=== PATIENT | male | born 1975 | race Caucasian/White ===

== ENCOUNTER 2024-07-26 02:34 | Observation (INO) ==
[2024-07-26 03:07] LABS: GASTROCCULT POSITIVE (Negative)
[2024-07-26 03:12] LABS: BASOPHILS % (AUTO) 0.6 %; EOSINOPHILS % (AUTO) 1.1 %; HCT - HEMATOCRIT 33.3 % (42.0-52.0); HGB - HEMOGLOBIN 11.5 g/dL (14.0-18.0); LYMPHOCYTES % (AUTO) 53.1 %; MEAN CORPUSCULAR HEMOGLOBIN 30.1 pg (27.0-31.0); MEAN CORPUSCULAR HGB CONC 34.5 g/dL (32.0-36.0); MEAN CORPUSCULAR VOLUME 87.2 fL (80.0-94.0); MEAN PLATELET VOLUME 11.1 fL (7.4-11.4); MONOCYTES % (AUTO) 6.1 %; NEUTROPHILS % (AUTO) 38.9 %; PLT - PLATELET COUNT 190 10^3/uL (130-450); RED BLOOD COUNT 3.82 10^6/uL (4.70-6.10); WHITE BLOOD COUNT 12.4 x10^3/uL (4.8-10.8)
[2024-07-26] MEDS: PANTOPRAZOLE 40 MG VIAL IVP STA (03:14)
[2024-07-26 03:15] LABS: BAND NEUTROPHILS % (MANUAL) 0 %
[2024-07-26 03:21] LABS: ALBUMIN 3.5 g/dL (3.2-5.5); ALBUMIN/GLOBULIN RATIO 1.8 (1.0-2.2); BILIRUBIN,TOTAL 0.7 mg/dL (0.2-1.0); CALCIUM 8.2 mg/dL (8.5-10.3); CREATININE 0.8 mg/dL (0.6-1.3); POTASSIUM 3.7 mmol/L (3.5-4.5); TOTAL PROTEIN 5.5 g/dL (6.4-8.9)
[2024-07-26 03:22] LABS: INR 1.2 (0.8-1.2); PT - PROTHROMBIN TIME 13.6 secs (9.9-12.6)
[2024-07-26 03:27] LABS: TROPONIN I HIGH SENSITIVITY 4.9 ng/L (2.3-19.7)
--- NOTE | 2024-07-26 04:19 | ED Physician Documentation ---
PD HPI GI BLEED Stated complaint Stated Complaint: GI/ SYNCOPE Chief complaint Chief Complaint: Neuro Additional information Additional information: HPI from patient. Patient had maroon-colored stool yesterday. Was otherwise feeling well until earlier tonight when [place] was on [place] come to [facility] and had near- syncopal episode when he was standing to use the urinal. The symptoms (lightheadedness, sensation that he might pass out) resolved rapidly once he sat back down. 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 Upon standing up he had unwitnessed syncopal episode. Unknown length of LOC. He denies having any pain including chest pain, abdominal pain. He denies h/o GIB. He does not drink alcohol on a heavy nor regular basis. Of note, patient has been taking aleve BID x 6 weeks; he says he was instructed to do so by his urologist after having reversal of his vasectomy. Denies nausea, vomiting (episode of emesis immediately after triage; see narrative under physical exam below) Past surgical history includes gastric sleeve (placed approximately 6 months ago). Patient required my immediate attention due to syncopal event during ED regulatory scientist. Meds/Allgy Home Medications Ambulatory Orders Medication Instructions Recorded Confirmed No Known Home Medications 07/26/24 07/26/24 Allergies Allergies Allergy/AdvReac Type Severity Reaction Status Date / Time No Known Drug Allergies Allergy Verified 07/26/24 02:49 PFSH Active Problems All Active Problems (Updated 07/26/24 @ 04:20 by Victor M Moyer MD) Syncope (Acute) Acute upper GI bleed (Acute) Social History Social History Smoking Status: Never smoker Relationship: Do you feel safe in your home environment?: Yes Suffered physical, verbal, emotional, or financial abuse?: No Exam Exam Vital Signs: Vital Signs x48h Pulse Resp BP Pulse Ox 07/26/24 06:08 67 16 109/71 97 07/26/24 05:08 67 20 120/70 97 07/26/24 04:38 71 16 123/73 98 07/26/24 03:23 74 20 121/79 97 07/26/24 03:18 70 20 121/79 97 07/26/24 02:51 74 20 121/80 99 I was summoned to the ED triage area by the triaging RN due to patient having a syncopal event during the triage process. The patient is seated in a chair, pale and unresponsive. However, within approximately 5-10 seconds, the patient suddenly regained consciousness and had brief resolution of his pallor. After approximately 30-45 seconds, he again became pale and although he did not lose consciousness again, he was slower to respond (both verbally as well as with following commands). He was then transferred to a stretcher and brought to room 3. Patient was AAOx3 and responding quickly and appropriately shortly after lying down on the stretcher. He had one episode of blood-tinged vomitus while being wheeled into room 3. The physical exam below is subsequent to being brought in to room 3 Constitutional normal general appearance, no apparent distress and alert HENMT oral mucous membranes normal Eyes PERRL and EOMs intact bilaterally Respiratory breath sounds equal bilaterally and clear to auscultation bilaterally Cardiovascular normal heart rate noted, regular rhythm noted, no gallop, no rub, no murmur, no JVD and no edema Gastrointestinal abdomen soft to palpation, nontender to palpation, nondistended, normoactive bowel sounds, no masses, no pulsatile mass and rectal exam abnormal (heme positive stool) Neurology brake assembler II-XII intact, no movement abnormality noted, no focal motor deficit noted, no sensory deficits noted, speech normal and GCS 15 Psychiatry oriented x3, thought process normal, cooperative, affect normal and memory normal Skin skin color abnormal (pale) (mild pallor) Results Vitals Vitals: Vital Signs - 24 hr 07/26/24 02:38 07/26/24 02:51 07/26/24 03:18 Pulse Rate 74 70 Respiratory Rate 20 20 Blood Pressure 121/80 121/79 O2 Saturation 99 97 O2 Source Room air Room air Pain Intensity 0 07/26/24 03:23 07/26/24 04:38 07/26/24 05:08 Pulse Rate 74 71 67 Respiratory Rate 20 16 20 Blood Pressure 121/79 123/73 120/70 O2 Saturation 97 98 97 O2 Source Room air Room air Room air Pain Intensity 07/26/24 06:08 Pulse Rate 67 Respiratory Rate 16 Blood Pressure 109/71 O2 Saturation 97 O2 Source Room air Pain Intensity Oxygen O2 Source Room air EKG (time done) 02:54: EKG releavant findings:: EKG personally interpreted by author of this note. Relevant findings are: Rate: Rate (enter#) (78) Rhythm: NSR and Normal P waves [place]: Normal Intervals: Normal VA QRS: QRS normal Ischemia: Normal ST segments and Q waves (III, aVF) Other comments: Other comments (RSR' V1) Labs Labs: Laboratory Tests 07/26/24 07/26/24 07/26/24 02:52 03:02 03:30 WBC 12.4 H RBC 3.82 L Hgb 11.5 L Hct 33.3 L MCV 87.2 MCH 30.1 MCHC 34.5 RDW 13.0 Plt Count 190 MPV 11.1 Neut # (Auto) Not Reportable Lymph # (Auto) Not Reportable [place] # (Auto) Not Reportable Eos # (Auto) Not Reportable Baso # (Auto) Not Reportable Absolute Nucleated RBC Not Reportable Total Counted 100 Band Neuts % (Manual) 0 Abnorm Lymph % (Manual) 12 Nucleated RBC % Not Reportable Neutrophils # (Manual) 3.3 Lymphocytes # (Manual) 8.1 H Monocytes # (Manual) 0.6 Eosinophils # (Manual) 0.4 Basophils # (Manual) 0.0 Differential Comment MANUAL DIFFERENTIAL WBC Morphology NORMAL APPEARANCE Platelet Estimate NORMAL (130-450,000) Platelet Morphology NORMAL APPEARANCE RBC Morph Micro Appear NORMAL APPEARANCE PT 13.6 H INR 1.2 APTT 23.0 L Sodium 139 Potassium 3.7 Chloride 108 Carbon Dioxide 24 Anion Gap 7.0 BUN 45 H Creatinine 0.8 Estimated GFR (MDRD) 103 Glucose 128 H Calcium 8.2 L Total Bilirubin 0.7 AST 14 ALT 17 Alkaline Phosphatase 47 Troponin I High Sens 4.9 Total Protein 5.5 L Albumin 3.5 Globulin 2.0 L Albumin/Globulin Ratio 1.8 Lipase 12 Gastric Fluid pH 3.0 Gastric Occult Blood POSITIVE Blood Type AB POSITIVE Blood Type Recheck AB POSITIVE Antibody Screen NEGATIVE Rads (name of study) chest xray: Relevant Findings:: Prelim report reviewed and See rad report CTH: Relevant Findings:: Prelim report reviewed and See rad report PD Medical Decision Making ED course Complexity details: reviewed results, re-evaluated patient, considered differential and d/w patient ED course: UGIB with syncope TALENT ACQUISITION ASSISTANT and again during ED triage. Patient recovered from the ED syncopal event before BP could be measured (BP was being measured at the time of syncope and thus likely was too low for the autocuff to register results). Subsequent to lying on stretcher and being brought into room 3 of ED, he had no further episodes of syncope/near-syncope nor further vomiting nor stool output. He had no pain c/o throughout ED stay and vital signs were stable throughout ED stay after being brought into room 3. Hemoglobin is 11.5. No previous results in [facility] but patient shows me results from 07/05/24 that include hemoglobin of 15. Also of note is elevated BUN (45) with normal creatinine (0.8), likely result of UGIB. Gastroccult is guaiac positive as is hemocult from rectal exam (note that both cards with samples (vomitus, stool) were sent to lab; the hemocult order was entered incorrectly and thus lab result not reported, but I used the stool sample on two different hemoccult cards, sending one to the lab and applying hemoccult to the other sample in ED and result was clearly positive (blue)). I discussed this case with Dr. Lan and she says patient is appropriate for admission to [facility]; EGD can be undertaken at [facility] if needed. I then discussed this case with [facility] practitioner on duty; he requests CTH prior to admit. CTH is normal (per radiologist's reading) and thus patient admitted to [facility] hospitalist's service. Patient given 40mg IV protonix in ED. Discharge Plan Discharge Patient Disposition: [facility] DC/Xfer Condition: Stable Clinical Impression: Acute upper GI bleed, Syncope Interventions: ED Admission Assessment Last Done: 07/26/24 07:15
[2024-07-26 04:24] LABS: ABNORMAL LYMPHS % (MANUAL) 12 %; DIFFERENTIAL COMMENT MANUAL DIFFERENTIAL; EOSINOPHILS # (MANUAL) 0.4 10^3/uL (0-0.7); LYMPHOCYTES # (MANUAL) 8.1 10^3/uL (1.5-3.5); LYMPHOCYTES % (MANUAL) 53 %; MONOCYTES # (MANUAL) 0.6 10^3/uL (0.0-1.0); NEUTROPHILS # (MANUAL) 3.3 10^3/uL (1.5-6.6); PLATELET ESTIMATE, MANUAL NORMAL (130-450,000) (NORMAL); PLATELET MORPHOLOGY NORMAL APPEARANCE (NORMAL); RBC MORPHOLOGY (MULTIPLE) NORMAL APPEARANCE (NORMAL); WBC MORPHOLOGY (MULTIPLE) NORMAL APPEARANCE (NORMAL)
[2024-07-26] MEDS ORDERED: ONDANSETRON 4 MG/2 ML VIAL IVP PRN ×2 (06:31→10:37)
[2024-07-26] MEDS ORDERED: MORPHINE 10 MG/ML VIAL IVP PRN (06:31)
[2024-07-26] MEDS: LACTATED RINGERS 1,000 ML IV SCH (07:59)
--- NOTE | 2024-07-26 08:00 | XRAY Report ---
PROCEDURE: XR Chest 1V INDICATIONS: syncope TECHNIQUE: One view of the chest was acquired. COMPARISON: None. FINDINGS: Surgical changes and devices: None. Lungs and pleura: No pleural effusions or pneumothorax. No consolidation. Mediastinum: Mediastinal contours appear normal. Heart size is normal. Bones and chest wall: No suspicious bony lesions. Overlying soft tissues appear unremarkable. IMPRESSION: No acute cardiopulmonary process. Findings are concordant with preliminary interpretation provided by [facility]. Reviewed by: Jovan Merino MD on 07/26/2024 7:59 AM PDT Approved by: Jovan Merino MD on 07/26/2024 7:59 AM PDT Station ID: [id number]
--- NOTE | 2024-07-26 08:01 | CT Report ---
PROCEDURE: CT Head WO INDICATIONS: syncope TECHNIQUE: Noncontrast 4.5 mm thick angled axial sections acquired from the foramen magnum to the vertex. For r adiation dose reduction, the following was used: automated exposure control, adjustment of mA and/or kV according to patient size. COMPARISON: None. FINDINGS: Image quality: Excellent. CSF spaces: Basal cisterns are patent. No extra-axial fluid collections. Ventricles are normal in size and shape. Brain: No midline shift. No intracranial mass effect or hemorrhage. Lyles-white matter interface is normal. Skull and face: Calvarium and visualized facial bones are intact, without suspicious lesions. Sinuses: Visualized sinuses and mastoids are clear. IMPRESSION: No acute intracranial pathology. Findings are concordant with preliminary interpretation provided by [facility]. Reviewed by: Jovan Merino MD on 07/26/2024 8:00 AM PDT Approved by: Jovan Merino MD on 07/26/2024 8:00 AM PDT Station ID: [id number]
--- NOTE | 2024-07-26 09:30 | ANESTHESIA PROCEDURE NOTE ---
Pre-Anesthesia VS, & Labs Diagnosis Surgical Diagnosis:: Anemia, GI Bleed Procedure Procedure: EGD Vitals Vital Signs: Temp Pulse Resp BP Pulse Ox 36.8 C 73 16 129/81 98 07/26/24 07:25 07/26/24 07:25 07/26/24 07:25 07/26/24 07:25 07/26/24 07:25 NPO NPO: >8 hours Lab Results Current Lab Results: Laboratory Tests 07/26/24 03:30: Blood Type Recheck AB POSITIVE 07/26/24 02:52: WBC 12.4 H, RBC 3.82 L, Hgb 11.5 L, Hct 33.3 L, MCV 87.2, MCH 30.1, MCHC 34.5, RDW 13.0, Plt Count 190, MPV 11.1, Neut # (Auto) Not Reportable, Lymph # (Auto) Not Reportable, [place] # (Auto) Not Reportable, Eos # (Auto) Not Reportable, Baso # (Auto) Not Reportable, Absolute Nucleated RBC Not Reportable, Total Counted 100, Band Neuts % (Manual) 0, Abnorm Lymph % (Manual) 12, Nucleated RBC % Not Reportable, Neutrophils # (Manual) 3.3, Lymphocytes # (Manual) 8.1 H, Monocytes # (Manual) 0.6, Eosinophils # (Manual) 0.4, Basophils # (Manual) 0.0, Differential Comment MANUAL DIFFERENTIAL, WBC Morphology NORMAL APPEARANCE, Platelet Estimate NORMAL (130-450,000), Platelet Morphology NORMAL APPEARANCE, RBC Morph Micro Appear NORMAL APPEARANCE, PT 13.6 H, INR 1.2, APTT 23.0 L, Sodium 139, Potassium 3.7, Chloride 108, Carbon Dioxide 24, Anion Gap 7.0, BUN 45 H, Creatinine 0.8, Estimated GFR (MDRD) 103, Glucose 128 H, Calcium 8.2 L, Total Bilirubin 0.7, AST 14, ALT 17, Alkaline Phosphatase 47, Troponin I High Sens 4.9, Total Protein 5.5 L, Albumin 3.5, Globulin 2.0 L, Albumin/Globulin Ratio 1.8, Lipase 12, Blood Type AB POSITIVE, Antibody Screen NEGATIVE Lab results reviewed: Yes 07/26/24 02:52 07/26/24 02:52 Meds/Allgy Home Medications Ambulatory Orders Medication Instructions Recorded Confirmed No Known Home Medications 07/26/24 07/26/24 Allergies Allergies Allergy/AdvReac Type Severity Reaction Status Date / Time No Known Drug Allergies Allergy Verified 07/26/24 02:49 PFSH Active Problems All Active Problems (Updated 07/26/24 @ 04:20 by Victor M Moyer MD) Syncope (Acute) Acute upper GI bleed (Acute) Surgical History Surgical History (Updated 07/26/24 @ 09:29 by Luciana Hoover CRNA) H/O gastric sleeve Denies any anesthetic complications Social History Social History (Updated 07/26/24 @ 07:56 by Victor M Moyer MD) Smoking Status: Never smoker Relationship: Do you feel safe in your home environment?: Yes Suffered physical, verbal, emotional, or financial abuse?: No POLST Patient has POLST: No Anesthesia Exam (Expanded) Exam General: Alert, Oriented x3 and Cooperative Dental: WNL Mouth Openin Fingerbreadth Neck Mobility: Normal Mallampati classification: II Thyromental Distance: 4-6 cm Exam Exam Vital Signs: Vital Signs x48h Temp Pulse Pulse Resp BP BP Pulse Ox 07/26/24 07:25 36.8 C 73 16 129/81 98 07/26/24 06:53 71 16 115/70 95 07/26/24 06:08 67 16 109/71 97 07/26/24 05:08 67 20 120/70 97 07/26/24 04:38 71 16 123/73 98 07/26/24 03:23 74 20 121/79 97 07/26/24 03:18 70 20 121/79 97 07/26/24 02:51 74 20 121/80 99 Plan Plan Anesthesia Type: General and Total IV Consent for Procedure(s) Verified and Reviewed: Yes Code Status: Attempt Resuscitation ASA Classification ASA classification: 2-Mild systemic disease Is this case an emergency?: Yes
--- NOTE | 2024-07-26 09:37 | CONSULTATION NOTE ---
History of Present Illness History of Present Illness HPI Comment/Other: 48YoM admitted to medicine overnight with episodes of melena x2 in last 48hrs along with a few near syncopal and then syncopal events. FOBT+ in ED. Had x1 small emesis vs phlegm with blood in it since getting to ED. No history of prior GIB. No heavy etoh use or tobacco use. H/o gastric sleeve 6mo ago, took omeprazole p2wrzyk then transitioned to PRN tums which he used 3-4x/week. Has been using BID Aleve x6 wks for a vasectomy reversal procedure. Denies having any epigastric pain, feels his sleeve recovery has been smooth. He lives in [place], had gastric with Dr. Robby Campos at [facility] in [place], flew to [place] yesterday for his 6mo postop visit which is scheduled for tomorrow. Note no h/o prior colonoscopy, no FHX of colon cancer. Hgb 11.5 (3 wks ago at outside facility hgb was 15 - patient has results with him). PFSH Active Problems All Active Problems (Updated 07/26/24 @ 04:20 by Victor M Moyer MD) Syncope (Acute) Acute upper GI bleed (Acute) Surgical History Surgical History (Updated 07/26/24 @ 09:56 by Melony Gibbs DO) History of vasectomy and vasectomy reversal H/O gastric sleeve Denies any anesthetic complications Social History Social History (Updated 07/26/24 @ 07:56 by Victor M Moyer MD) Smoking Status: Never smoker Relationship: Do you feel safe in your home environment?: Yes Suffered physical, verbal, emotional, or financial abuse?: No POLST Patient has POLST: No Meds/Allgy Home Medications Ambulatory Orders Medication Instructions Recorded Confirmed No Known Home Medications 07/26/24 07/26/24 Allergies Allergies Allergy/AdvReac Type Severity Reaction Status Date / Time No Known Drug Allergies Allergy Verified 07/26/24 02:49 Results Lab Results Lab results reviewed: Yes 07/26/24 02:52 07/26/24 02:52 Other Lab Results: Lab Results x24hrs 07/26/24 07/26/24 07/26/24 Range/Units 03:30 03:02 02:52 WBC 12.4 H (4.8-10.8) x10^3/uL RBC 3.82 L (4.70-6.10) 10^6/uL Hgb 11.5 L (14.0-18.0) g/dL Hct 33.3 L (42.0-52.0) % MCV 87.2 (80.0-94.0) fL MCH 30.1 (27.0-31.0) pg MCHC 34.5 (32.0-36.0) g/dL RDW 13.0 (12.0-15.0) % Plt Count 190 (130-450) 10^3/uL MPV 11.1 (7.4-11.4) fL Neut # (Auto) Not Reportable Lymph # (Auto) Not Reportable [place] # (Auto) Not Reportable Eos # (Auto) Not Reportable Baso # (Auto) Not Reportable Absolute Nucleated RBC Not Reportable Total Counted 100 Band Neuts % (Manual) 0 (0 - 10) % Abnorm Lymph % (Manual) 12 % Nucleated RBC % Not Reportable Neutrophils # (Manual) 3.3 (1.5-6.6) 10^3/uL Lymphocytes # (Manual) 8.1 H (1.5-3.5) 10^3/uL Monocytes # (Manual) 0.6 (0.0-1.0) 10^3/uL Eosinophils # (Manual) 0.4 (0-0.7) 10^3/uL Basophils # (Manual) 0.0 (0-0.1) 10^3/uL Differential Comment MANUAL DIFFERENTIAL WBC Morphology NORMAL APPEARANCE (NORMAL) Platelet Estimate NORMAL (130-450,000) (NORMAL) Platelet Morphology NORMAL APPEARANCE (NORMAL) RBC Morph Micro Appear NORMAL APPEARANCE (NORMAL) PT 13.6 H (9.9-12.6) secs INR 1.2 (0.8-1.2) APTT 23.0 L (24.9-33.3) secs Sodium 139 (135-145) mmol/L Potassium 3.7 (3.5-4.5) mmol/L Chloride 108 (101-111) mmol/L Carbon Dioxide 24 (21-32) mmol/L Anion Gap 7.0 (6-13) BUN 45 H (6-20) mg/dL Creatinine 0.8 (0.6-1.3) mg/dL Estimated GFR (MDRD) 103 (>89) Glucose 128 H (74-104) mg/dL Calcium 8.2 L (8.5-10.3) mg/dL Total Bilirubin 0.7 (0.2-1.0) mg/dL AST 14 (10-42) IU/L ALT 17 (10-60) IU/L Alkaline Phosphatase 47 (42-121) IU/L Troponin I High Sens 4.9 (2.3-19.7) ng/L Total Protein 5.5 L (6.4-8.9) g/dL Albumin 3.5 (3.2-5.5) g/dL Globulin 2.0 L (2.1-4.2) g/dL Albumin/Globulin Ratio 1.8 (1.0-2.2) Lipase 12 (11-82) U/L Gastric Fluid pH 3.0 Gastric Occult Blood POSITIVE (Negative) Blood Type AB POSITIVE Blood Type Recheck AB POSITIVE Antibody Screen NEGATIVE Review of Systems Status of ROS: 10 or more systems reviewed and unremarkable except as noted in history and below Exam Exam Vital Signs: Vital Signs x48h Temp Pulse Pulse Resp BP BP Pulse Ox 07/26/24 07:25 36.8 C 73 16 129/81 98 07/26/24 06:53 71 16 115/70 95 07/26/24 06:08 67 16 109/71 97 07/26/24 05:08 67 20 120/70 97 07/26/24 04:38 71 16 123/73 98 07/26/24 03:23 74 20 121/79 97 07/26/24 03:18 70 20 121/79 97 07/26/24 02:51 74 20 121/80 99 Constitutional normal general appearance and no apparent distress HENMT normocephalic and head/scalp atraumatic Eyes conjunctivae normal and normal visual rodriguez by confrontation Neck/C-Spine visual inspection normal Respiratory normal respiratory effort Cardiovascular normal heart rate noted Gastrointestinal abdomen normal to inspection, abdomen soft to palpation, nontender to palpation and nondistended Extremities normal to inspection Psychiatry mental status grossly normal and oriented x3 Skin skin color normal Conclusion/Plan Problem List (1) Acute upper GI bleed: Plan: 48yoM with suspected UGIB in setting of acute NSAID use following recent gastric sleeve without being on PPI. HD stable with hgb of 11.5, down from 15 at outside facility 3 weeks ago. - admitted to IM, NPO and IV protonix started - to OR for EGD to assess sleeve for source of bleeding - if no bleed identified on EGD will plan for bowel prep and colonoscopy tomorrow, though suspect this is unlikely - further recs to follow EGD Melony Gibbs DO, FACS General Surgeon, [facility] Lab Results Lab results reviewed: Yes 07/26/24 02:52 07/26/24 02:52
[2024-07-26] MEDS ORDERED: PROPOFOL 500 MG/50 ML 500 MG/50 ML VIAL ONE (09:45)
[2024-07-26] MEDS ORDERED: LIDOCAINE-MPF 2% 5 ML VIAL ONE (09:45)
[2024-07-26] MEDS ORDERED: MIDAZOLAM 2 MG/2 ML VIAL ONE (09:45)
[2024-07-26] MEDS: PANTOPRAZOLE 40 MG VIAL IVP SCH (09:53)
[2024-07-26] MEDS ORDERED: MORPHINE 2 MG/ML CARPUJECT IVP PRN (10:37)
[2024-07-26] MEDS ORDERED: METOCLOPRAMIDE 10 MG/2 ML VIAL IVP PRN (10:37)
[2024-07-26] MEDS ORDERED: HYDROmorphone 0.5 MG/0.5 ML SYRINGE IVP PRN (10:37)
[2024-07-26] MEDS ORDERED: ATROPINE ABBOJECT 1 MG/10 ML SYRINGE IVP PRN (10:37)
[2024-07-26] MEDS ORDERED: fentaNYL 100 MCG/2 ML VIAL IVP PRN (10:37)
[2024-07-26] MEDS ORDERED: NALOXONE 0.4 MG/ML VIAL IVP PRN (10:37)
[2024-07-26] MEDS ORDERED: ePHEDrine 50 MG/ML VIAL IVP PRN (10:37)
--- NOTE | 2024-07-26 10:47 | ANESTHESIA POST OP EVALUATION ---
Anesthesia Post Eval Post Anesthesia Eval Vitals: Last Vital Signs Temp 36.3 C L 07/26/24 10:30 Pulse 74 07/26/24 10:45 Resp 19 07/26/24 10:45 BP 107/68 07/26/24 10:45 Pulse Ox 98 07/26/24 10:45 CV Function Including HR & BP: Stable Pain Control: Satisfactory Nausea & Vomiting: Negative Mental Status: Baseline Respiratory Status: Airway Patent Hydration Status: Satisfactory Anesthesia Complications: None
[2024-07-26] MEDS ORDERED: LACTATED RINGERS 1,000 ML IV SCH (11:00)
--- NOTE | 2024-07-26 11:57 | PHARMACY PROGRESS NOTE ---
Best Possible Medication History Admit Date and Time: 07/26/24 0629 Home Medications Medication Instructions Recorded Confirmed Type No Known Home Medications 07/26/24 07/26/24 History Processed by: Pharmacy (Medication reconciliation completed by [facility] ManagerEllen) Medications reviewed in ED?: No Medication History completed: Yes Patient Interview: Completed Secondary Source(s): Insurance records [facility] Statement: As the person ultimately responsible for medication therapy, providers are able to order a medication from an existing home medication list in [facility] via the "Reconcile Routine" prior to Confirmation of that medication by mining support worker. Such practice is discouraged except when the physician, in their clinical judgment, deems that a medical need exists for a medication without regard to previous use.
--- NOTE | 2024-07-26 12:06 | HISTORY & PHYSICAL EXAMINATION ---
Chief Complaint Chief Complaint Chief Complaint: Syncope History of Present Illness Admitted From Admitted From:: Home History Obtained From Records Reviewed: Yes History obtained from: Patient and patient's at bedside Exam Limitations: None History of Present Illness HPI Comment/Other: Patient is a 48-year-old male with a history of recent gastric sleeve surgery completed about 6 months ago who presented for a syncopal event. Patient states that yesterday, he had an episode of a dark tarry stool. He then started feeling lightheaded and dizzy, went to lie down. He then got up again, had hit another stool with some redness mixed into his stool. After this, he got lightheaded and dizzy and had a syncopal event where he fell and hit the left side of his head. He then presented to the emergency room, where he had a large coffee ground type emesis. Of note, patient had a gastric sleeve surgery about 6 months ago. About 6 weeks ago, he had a reversal of his vasectomy, and was advised to use Aleve twice a day, which he has been doing. He has not been using any GI prophylaxis, Pepcid, Protonix, etc. He endorses drinking alcohol a few times a week. He denies any tobacco or recreational drug use. His bariatric surgeon is Dr. Robby Campos. I did speak with him and keep him updated. He has an appointment scheduled for him tomorrow, he will continue to follow-up with them then. Patient lives in [place] and is currently visiting his mother. Meds/Allgy Home Medications Ambulatory Orders Medication Instructions Recorded Confirmed No Known Home Medications 07/26/24 07/26/24 Allergies Allergies Allergy/AdvReac Type Severity Reaction Status Date / Time No Known Drug Allergies Allergy Verified 07/26/24 02:49 PFSH Active Problems All Active Problems Hiatal hernia with GERD and esophagitis (Acute) Gastritis due to nonsteroidal anti-inflammatory drug (NSAID) (Acute) Syncope (Acute) Acute upper GI bleed (Acute) Surgical History Surgical History History of esophagogastroduodenoscopy (EGD) (~07/26/24) History of vasectomy and vasectomy reversal H/O gastric sleeve Denies any anesthetic complications Social History Social History Smoking Status: Never smoker Relationship: Level: Independent Do you feel safe in your home environment?: Yes Suffered physical, verbal, emotional, or financial abuse?: No POLST Patient has POLST: No POLST Status: Full Code Review of Systems Constitutional Reports: Fatigue, Malaise and Weakness; Denies: Fever, Chills or Poor appetite Eyes Denies: Pain, Irritation, Blurry vision, Vision loss, Diplopia or Eye discomfort Ears, nose, mouth, and throat Denies: Ear pain, Hearing loss, Tinnitus, Nose bleeds, Nasal discharge, Mouth lesions, Bleeding gums or Neck pain Cardiovascular Denies: Irregular heart rate, chest pain, palpitations, edema, Syncope or shortness of breath with exertion Respiratory Denies: Shortness of breath, Cough, Sputum production or Wheezing Gastrointestinal Reports: Nausea, Vomiting, Coffee grounds in vomit, Rectal bleeding and Change in stool character; Denies: Abdominal pain, Abdominal distention, Heartburn, Diarrhea or Constipation Genitourinary Denies: Painful urination, Urinary frequency or Urinary urgency Musculoskeletal Denies: Back pain, Neck pain, Extremity pain, Extremity swelling or Joint pain Integumentary/Breast Denies: Rash, Itching, Dryness, Redness or Skin pain Neurological Reports: General weakness and Dizziness; Denies: Headache, Weakness in extremities, Numbness in extremities or Abnormal gait Psychiatric Denies: Depression, Anxiety, Mood swings or Panic attacks Endocrine Reports: Fatigue; Denies: Excessive urination or Excessive thirst Hematologic/Lymphatic Reports: Anemia; Denies: Easy bruising or Easy bleeding Allergic/Immunologic Denies: Hives, Tongue swelling, Facial swelling or Wheezing Exam Exam Vital Signs: Vital Signs x48h Temp Pulse Pulse Resp BP BP Pulse Ox 07/26/24 14:00 98.4 F 77 16 128/69 97 07/26/24 13:05 98.4 F 74 20 111/70 99 07/26/24 12:05 98.1 F 68 24 104/72 98 07/26/24 11:35 98.1 F 72 16 121/66 97 07/26/24 11:05 97.7 F 77 16 115/75 96 07/26/24 10:55 97.2 F L 71 17 97/64 99 07/26/24 10:45 74 19 107/68 98 07/26/24 10:40 77 12 108/67 99 07/26/24 10:36 79 19 113/63 97 07/26/24 10:30 97.3 F L 78 18 114/57 L 96 Constitutional normal general appearance, no apparent distress, average body habitus, no limitations and alert HENAL head/scalp traumatic (contusion) (L side of scalp) and oral mucous membranes normal Eyes PERRL, EOMs intact bilaterally, conjunctivae normal and no scleral icterus Neck/C-Spine visual inspection normal, trachea midline and cervical spine nontender Lymph no lymphadenopathy noted Chest inspection of chest normal and palpation of chest normal Respiratory breath sounds equal bilaterally, normal respiratory effort, clear to auscultation bilaterally, no wheezes, no rales and no use of accessory muscles Cardiovascular normal heart rate noted, regular rhythm noted, no gallop, no rub and no murmur Gastrointestinal abdomen normal to inspection, abdomen soft to palpation, nontender to palpation and nontender to percussion small lacroscopic scars noted on abdomen Genitourinary no CVA tenderness Back/Pelvis spine normal to inspection, no thoracic spine tenderness and no lumbar spine tenderness Extremities normal to inspection, normal to palpation and no tenderness Neurology no movement abnormality noted, no focal motor deficit noted and no sensory deficits noted Psychiatry mental status grossly normal, oriented x3, thought process normal, cooperative and affect normal Skin skin color normal, no rash, no lesions and no ecchymosis noted Conclusion/Plan Problem List (1) Acute upper GI bleed: Plan: Patient presents with coffee-ground emesis, dark stools. Hemoglobin is 11.5. Patient has lab work from 07/05 which indicates hemoglobin was 15. Has been using NSAIDs for the past 6 weeks due to her recent procedure. EGD completed todayshows mucosa suspicious for Aguilar's, hiatal hernia, as well as gastritis. Spoke with surgeon, she recommends Protonix twice daily, as well as sucralfate for 3 months. Updated patient's bariatric surgeon, Dr. Robby Campos about patient's hospitalization; patient has an appointment tomorrow, which we are hoping to keep. Continue trending H&H every 8 hours. Continue IV fluids. Advance from n.p.o. prior to the EGD to GI soft diet now. (2) Gastritis due to nonsteroidal anti-inflammatory drug (NSAID): Plan: See above. (3) Syncope: Plan: Consistent with acute blood loss. No feelings of dizziness at this time, continue IV fluids at this time. Qualifiers: Syncope type: unspecified Qualified Code(s): R55 - Syncope and collapse (4) H/O gastric sleeve: Plan: Updated patient's bariatric surgeon, Dr. Robby Campos about patient's hospitalization; patient has an appointment tomorrow, which we are hoping to keep. About 6 months out from his surgery. Lab Results Lab results reviewed: Yes 07/26/24 13:50 07/26/24 02:52
[2024-07-26 13:54] LABS: HCT - HEMATOCRIT 29.4 % (42.0-52.0); HGB - HEMOGLOBIN 10.2 g/dL (14.0-18.0)
[2024-07-26] MEDS: SUCRALFATE 1 GM/10 ML UDC PO SCH (16:39)
[2024-07-26 19:41] LABS: HCT - HEMATOCRIT 29.1 % (42.0-52.0); HGB - HEMOGLOBIN 9.8 g/dL (14.0-18.0)
[2024-07-26] MEDS: PANTOPRAZOLE 40 MG TABLET PO SCH (21:02)
[2024-07-26] MEDS: PEG 3350/NA SULF,BICARB,CL/KCL 4,000 ML BOTTLE PO ONE (21:29)
[2024-07-27 05:55] LABS: HCT - HEMATOCRIT 25.9 % (42.0-52.0); HGB - HEMOGLOBIN 8.7 g/dL (14.0-18.0); MEAN CORPUSCULAR HGB CONC 33.6 g/dL (32.0-36.0); MEAN CORPUSCULAR VOLUME 89.3 fL (80.0-94.0); MEAN PLATELET VOLUME 11.1 fL (7.4-11.4); RED BLOOD COUNT 2.9 10^6/uL (4.70-6.10); RED CELL DISTRIBUTION WIDTH 13.4 % (12.0-15.0); WHITE BLOOD COUNT 6.1 x10^3/uL (4.8-10.8)
[2024-07-27 06:15] LABS: CALCIUM 7.8 mg/dL (8.5-10.3); CREATININE 0.7 mg/dL (0.6-1.3); MAGNESIUM 1.7 mg/dL (1.7-2.3); POTASSIUM 3.5 mmol/L (3.5-4.5)
--- NOTE | 2024-07-27 10:13 | PROVIDER PROGRESS NOTE ---
Subjective General Admit Date: 07/26/24 Procedure Date: 07/26/24 Post Op Days: 1 Procedure Performed: EGD with biopsy Other Other Information/Narrative: Patient doing well. Small amount of blood with BM yesterday. Did bowel prep last night and noted it to be clear and non bloody throughout. He denies pain, nausea this AM. Exam Exam Vital Signs: Vital Signs x48h Temp Pulse Resp BP Pulse Ox 07/27/24 08:13 97.5 F L 63 18 104/64 100 07/27/24 03:53 97.7 F 64 18 105/67 99 GEN: No acute distress, alert and oriented CV: RRR PULM: non labored, on RA ABD: soft, obese, non tender, no rebound or guarding EXT: no clubbing, cyanosis, or edema Impression/Plan Problem List (1) Acute upper GI bleed: Plan: inflammtion noted at GE junction and in stomach with stigmata of recent bleeding but no areas to intervene upon identified on EGD, 07/[address] Gibbs. Pathology pending Continue PPI and avoid NSAID medications moving forward. Patient agrees and is able to teach back these recommendations. Hgb continued to trend down after EGD, so patient completed bowel prep for CE today. He has never had a CE in the past. No family history of colon cancer or IBD. He may have had some hemorrhoids in the past but denies melena, or recent changes in bowel habits. I outlined the natural history of colon polyps and colon cancer as well as the rationale behind colonoscopy in the setting of his recent GI bleeding. We then discussed the risks, benefits, and alternatives of colonoscopy including bleeding and perforation. The patient voiced understanding, all questions were answered, and the patient wished to proceed. A consent was signed prior to the procedure. Plan to proceed with diagnostic colonoscopy. (2) Gastritis due to nonsteroidal anti-inflammatory drug (NSAID): Plan: see above. (3) Syncope: Qualifiers: Syncope type: unspecified Qualified Code(s): R55 - Syncope and collapse (4) H/O gastric sleeve: Plan colonoscopy this AM
--- NOTE | 2024-07-27 10:14 | ANESTHESIA PROCEDURE NOTE ---
Pre-Anesthesia VS, & Labs Diagnosis Surgical Diagnosis:: Anemia, GI Bleed Procedure Procedure: colonoscopy Vitals Vital Signs: Temp Pulse Resp BP Pulse Ox 36.4 C L 63 18 104/64 100 07/27/24 08:13 07/27/24 08:13 07/27/24 08:13 07/27/24 08:13 07/27/24 08:13 Height (in): 5 ft 11 in Weight (kg): 117 kg Body Mass Index: 35.9 BMI Classification: Obese NPO NPO: >8 hours Lab Results Current Lab Results: Laboratory Tests 07/27/24 05:35: WBC 6.1, RBC 2.90 L, Hgb 8.7 L, Hct 25.9 L, MCV 89.3, MCH 30.0, MCHC 33.6, RDW 13.4, Plt Count 121 L, MPV 11.1, Sodium 141, Potassium 3.5, Chloride 109, Carbon Dioxide 27, Anion Gap 5.0 L, BUN 22 H, Creatinine 0.7, Estimated GFR (MDRD) 120, Glucose 95, Calcium 7.8 L, Magnesium 1.7 07/26/24 19:37: Hgb 9.8 L, Hct 29.1 L 07/26/24 13:50: Hgb 10.2 L, Hct 29.4 L 07/26/24 03:30: Blood Type Recheck AB POSITIVE 07/26/24 02:52: WBC 12.4 H, RBC 3.82 L, Hgb 11.5 L, Hct 33.3 L, MCV 87.2, MCH 30.1, MCHC 34.5, RDW 13.0, Plt Count 190, MPV 11.1, Neut # (Auto) Not Reportable, Lymph # (Auto) Not Reportable, [place] # (Auto) Not Reportable, Eos # (Auto) Not Reportable, Baso # (Auto) Not Reportable, Absolute Nucleated RBC Not Reportable, Total Counted 100, Band Neuts % (Manual) 0, Abnorm Lymph % (Manual) 12, Nucleated RBC % Not Reportable, Neutrophils # (Manual) 3.3, Lymphocytes # (Manual) 8.1 H, Monocytes # (Manual) 0.6, Eosinophils # (Manual) 0.4, Basophils # (Manual) 0.0, Differential Comment MANUAL DIFFERENTIAL, WBC Morphology NORMAL APPEARANCE, Platelet Estimate NORMAL (130-450,000), Platelet Morphology NORMAL APPEARANCE, RBC Morph Micro Appear NORMAL APPEARANCE, PT 13.6 H, INR 1.2, APTT 23.0 L, Sodium 139, Potassium 3.7, Chloride 108, Carbon Dioxide 24, Anion Gap 7.0, BUN 45 H, Creatinine 0.8, Estimated GFR (MDRD) 103, Glucose 128 H, Calcium 8.2 L, Total Bilirubin 0.7, AST 14, ALT 17, Alkaline Phosphatase 47, Troponin I High Sens 4.9, Total Protein 5.5 L, Albumin 3.5, Globulin 2.0 L, Albumin/Globulin Ratio 1.8, Lipase 12, Blood Type AB POSITIVE, Antibody Screen NEGATIVE Lab results reviewed: Yes 07/27/24 05:35 07/27/24 05:35 Meds/Allgy Home Medications Ambulatory Orders Medication Instructions Recorded Confirmed No Known Home Medications 07/26/24 07/26/24 Allergies Allergies Allergy/AdvReac Type Severity Reaction Status Date / Time No Known Drug Allergies Allergy Verified 07/26/24 02:49 PFSH Active Problems All Active Problems Hiatal hernia with GERD and esophagitis (Acute) Gastritis due to nonsteroidal anti-inflammatory drug (NSAID) (Acute) Syncope (Acute) Acute upper GI bleed (Acute) Surgical History Surgical History History of esophagogastroduodenoscopy (EGD) (~07/26/24) History of vasectomy and vasectomy reversal H/O gastric sleeve Denies any anesthetic complications Social History Social History Smoking Status: Never smoker Relationship: Level: Independent Do you feel safe in your home environment?: Yes Suffered physical, verbal, emotional, or financial abuse?: No POLST Patient has POLST: No POLST Status: Full Code Anesthesia Exam (Expanded) Exam General: Alert Dental: WNL Mouth Openin Fingerbreadth Neck Mobility: Normal Mallampati classification: II Thyromental Distance: 4-6 cm Exam Exam Vital Signs: Vital Signs x48h Temp Pulse Resp BP Pulse Ox 07/27/24 08:13 36.4 C L 63 18 104/64 100 04/24/25 03:53 36.5 C 64 18 105/67 99 Plan Plan Anesthesia Type: Total IV Consent for Procedure(s) Verified and Reviewed: Yes Code Status: Attempt Resuscitation ASA Classification ASA classification: 2-Mild systemic disease Is this case an emergency?: No
[2024-07-27] MEDS ORDERED: MIDAZOLAM 2 MG/2 ML VIAL ONE (10:17)
[2024-07-27] MEDS ORDERED: PROPOFOL 500 MG/50 ML 500 MG/50 ML VIAL ONE (10:17)
[2024-07-27] MEDS ORDERED: LIDOCAINE-PF 2% 10 ML AMP SUBQ ONE (10:17)
[2024-07-27] MEDS ORDERED: fentaNYL 100 MCG/2 ML VIAL IVP PRN (11:02)
[2024-07-27] MEDS ORDERED: HYDROmorphone 0.5 MG/0.5 ML SYRINGE IVP PRN (11:02)
[2024-07-27] MEDS ORDERED: NALOXONE 0.4 MG/ML VIAL IVP PRN (11:02)
[2024-07-27] MEDS ORDERED: ePHEDrine 50 MG/ML VIAL IVP PRN (11:02)
[2024-07-27] MEDS ORDERED: ATROPINE ABBOJECT 1 MG/10 ML SYRINGE IVP PRN (11:02)
[2024-07-27] MEDS ORDERED: MORPHINE 2 MG/ML CARPUJECT IVP PRN (11:02)
[2024-07-27] MEDS ORDERED: ONDANSETRON 4 MG/2 ML VIAL IVP PRN (11:02)
[2024-07-27] MEDS ORDERED: METOCLOPRAMIDE 10 MG/2 ML VIAL IVP PRN (11:02)
--- NOTE | 2024-07-27 11:24 | ANESTHESIA POST OP EVALUATION ---
Anesthesia Post Eval Post Anesthesia Eval Vitals: Last Vital Signs Temp 36.2 C L 07/27/24 11:17 Pulse 61 07/27/24 11:17 Resp 15 07/27/24 11:17 BP 105/59 L 07/27/24 11:17 Pulse Ox 100 07/27/24 11:17 CV Function Including HR & BP: Stable Pain Control: Satisfactory Nausea & Vomiting: Negative Mental Status: Baseline Respiratory Status: Airway Patent Hydration Status: Satisfactory Anesthesia Complications: None
--- NOTE | 2024-07-27 11:28 | PROVIDER PROGRESS NOTE ---
Subjective Subjective Subjective: Patient completed colonoscopy prep yesterday. Yesterday, he had one episode of a bloody bowel movement with bright blood. As he completed the prep overnight, he has not had any further episodes of this. His dizziness has resolved. He has had no lightheadedness. Denies any fevers or chills. Current Medications Current Medications Current Medications: Current Medications Generic Name Dose Route Start Last Admin Trade Name Freq PRN Reason Stop Dose Admin Lactated Ringer's 1,000 mls @ 125 mls/hr 07/26/24 07:00 07/27/24 04:08 Lr IV 125 mls/hr .Q8H ANNE Administration Morphine Sulfate 2 mg 07/26/24 06:31 Morphine 10 Mg/Ml Vial IVP Q4H PRN Pain Ondansetron HCl 4 mg 07/26/24 06:31 Ondansetron 4 Mg/2 Ml Vial IVP Q8H PRN Nausea / Vomiting Pantoprazole Sodium 40 mg 07/26/24 21:00 07/27/24 09:28 Pantoprazole 40 Mg Tablet PO Not Given BID ANNE Sucralfate 1 gm 07/26/24 16:00 07/27/24 06:26 Sucralfate 1 Gm/10 Ml Udc PO 1 gm 0700,1100,1600,2200 ANNE Administration Objective Vital Signs/Intake & Output Reviewed Vital Signs: Yes Vital Signs: Vital Signs x48h Temp Pulse Pulse Resp BP BP Pulse Ox 07/27/24 11:17 97.2 F L 61 15 105/59 L 100 07/27/24 11:10 97.2 F L 65 16 93/53 L 98 07/27/24 10:55 97.5 F L 64 18 85/48 L 100 07/27/24 08:13 97.5 F L 63 18 104/64 100 07/27/24 03:53 97.7 F 64 18 105/67 99 Intake & Output: Intake & Output 07/24/24 07/25/24 07/26/24 07/27/24 23:59 23:59 23:59 23:59 Intake Total 2444 / 2444 885 / 885 Output Total 300 / 300 Balance 2144 / 2144 885 / 885 Weight (kg) 117.8 kg 117 kg Objective General Appearance: positive No acute distress and Alert; negative Anxious Eyes Bilateral: positive Normal inspection, PERRL and EOMI ENT: positive ENT inspection nml, Pharynx nml and No signs of dehydration Neck: positive Nml inspection, Thyroid nml and No JVD Respiratory: positive Chest non-tender, No respiratory distress and Breath sounds nml; negative Wheezes, Rales or Rhonchi Cardiovascular: positive Regular rate & rhythm, No murmur and No gallop Abdomen: positive Non-tender, No organomegaly, Nml bowel sounds and No distention Back: positive Nml inspection; negative CVA tenderness (R) or CVA tenderness (L) Skin: positive Color nml, No rash, Warm and Dry Extremities: positive Non-tender, Full ROM, Nml appearance and No pedal edema Neurologic/Psychiatric: positive Oriented x3, Motor nml, Sensation nml and Mood/affect nml Lab Results 07/27/24 05:35 07/27/24 05:35 Other Labs: Lab Results x24hrs 07/27/24 07/26/24 07/26/24 Range/Units 05:35 19:37 13:50 WBC 6.1 (4.8-10.8) x10^3/uL RBC 2.90 L (4.70-6.10) 10^6/uL Hgb 8.7 L 9.8 L 10.2 L (14.0-18.0) g/dL Hct 25.9 L 29.1 L 29.4 L (42.0-52.0) % MCV 89.3 (80.0-94.0) fL MCH 30.0 (27.0-31.0) pg MCHC 33.6 (32.0-36.0) g/dL RDW 13.4 (12.0-15.0) % Plt Count 121 L (130-450) 10^3/uL MPV 11.1 (7.4-11.4) fL Sodium 141 (135-145) mmol/L Potassium 3.5 (3.5-4.5) mmol/L Chloride 109 (101-111) mmol/L Carbon Dioxide 27 (21-32) mmol/L Anion Gap 5.0 L (6-13) BUN 22 H (6-20) mg/dL Creatinine 0.7 (0.6-1.3) mg/dL Estimated GFR (MDRD) 120 (>89) Glucose 95 (74-104) mg/dL Calcium 7.8 L (8.5-10.3) mg/dL Magnesium 1.7 (1.7-2.3) mg/dL Assessment/Plan Problem List (1) Acute upper GI bleed: Impression: Patient presents with coffee-ground emesis, dark stools. Hemoglobin was 11.5, downtrended to 8.7. Patient has lab work from 07/05 which indicates hemoglobin was 15. Has been using NSAIDs for the past 6 weeks due to her recent procedure. EGD completed todayshows mucosa suspicious for Aguilar's, hiatal hernia, as well as gastritis. Spoke with surgeon, she recommends Protonix twice daily, as well as sucralfate for 3 months. Updated patient's bariatric surgeon, Dr. Robby Campos about patient's hospitalization; patient has an appointment tomorrow, which we are hoping to keep. Completed colonoscopy today which was unremarkable. Continue to monitor today for hypotension; will recheck H&H this afternoon. If stable, may discharge later today. If continues to drop, or continues to be hypotensive, will continue IVF resuscitation. (2) Gastritis due to nonsteroidal anti-inflammatory drug (NSAID): Impression: See above. (3) Syncope: Impression: Consistent with acute blood loss. No feelings of dizziness at this time, continue IV fluids at this time. Qualifiers: Syncope type: unspecified Qualified Code(s): R55 - Syncope and collapse (4) H/O gastric sleeve: Impression: Updated patient's bariatric surgeon, Dr. Robby Campos about patient's hospitalization; patient has an appointment tomorrow, which we are hoping to keep. About 6 months out from his surgery.
[2024-07-27] MEDS ORDERED: LACTATED RINGERS 1,000 ML IV SCH (12:00)
--- NOTE | 2024-07-27 13:02 | Discharge Summary ---
"Discharge Summary Admit Date: 07/26/24 Discharge Date: 07/27/24 Discharging Provider: Dr. Bon Flores Primary Care Provider: Out of state (from [place]) Code Status: Attempt Resuscitation Discharge Facility Name: Home DIAGNOSES Admission Diagnoses: Acute upper GI bleed Gastritis due to NSAID use Syncope History of gastric sleeve Discharge Diagnoses with Status of Each Condition: Acute upper GI bleedEGD does show friable mucosa, gastritis. Biopsies were taken. Continue Protonix 40 mg twice daily, continue sucralfate 4 times daily for at least 3 months. Follow-up closely in the outpatient setting with primary care provider and general surgeon. Advised to abstain from NSAID use at this time. Advised to follow-up with his bariatric surgeon as well. Gastritis due to NSAID usesee above. Syncopelikely due to above, resolved. History of gastric sleevefollow-up with Dr. Campos, his bariatric surgeon. HPI History of Present Illness: Patient is a 48-year-old male with a history of recent gastric sleeve surgery completed about 6 months ago who presented for a syncopal event. Patient states that yesterday, he had an episode of a dark tarry stool. He then started feeling lightheaded and dizzy, went to lie down. He then got up again, had hit another stool with some redness mixed into his stool. After this, he got lightheaded and dizzy and had a syncopal event where he fell and hit the left side of his head. He then presented to the emergency room, where he had a large coffee ground type emesis. Of note, patient had a gastric sleeve surgery about 6 months ago. About 6 weeks ago, he had a reversal of his vasectomy, and was advised to use Aleve twice a day, which he has been doing. He has not been using any GI prophylaxis, Pepcid, Protonix, etc. He endorses drinking alcohol a few times a week. He denies any tobacco or recreational drug use. His bariatric surgeon is Dr. Robby Campos. I did speak with him and keep him updated. He has an appointment scheduled for him tomorrow, he will continue to follow-up with them then. Patient lives in [place] and is currently visiting his mother. CONSULTS | PROCEDURES Consultations: general surgery Procedures: CT head, chest x-ray, EGD, colonoscopy HOSPITAL COURSE Hospital Course: Patient is a 48-year-old male with a recent history of bariatric surgery about 6 months ago presented after a couple episodes of dark stools, syncopal event involving hitting his head, as well as coffee-ground emesis. He has been taking NSAIDs for the past few weeks for vasectomy reversal. EGD was done which showed friable mucosa, gastritis. Biopsies were taken. Colonoscopy was normal. Patient was advised to continue Protonix 40 mg twice a day, as well as sucralfate 4 times a day. He was deemed stable for discharge once his hemoglobin stabilized and his blood pressure was normotensive. He is advised extensively to follow-up closely with his bariatric surgeon, a general surgeon, as well as his primary care provider. He is from out of town, but he has close follow-up back home in [place]. ALLERGIES Allergies Allergy/AdvReac Type Severity Reaction Status Date / Time No Known Drug Allergies Allergy Verified 07/26/24 02:49 MEDICATIONS Ambulatory Orders Medication Instructions Recorded Confirmed pantoprazole 40 mg tablet,delayed 40 mg PO BIDAC #60 tabs 07/27/24 release sucralfate 1 gram tablet 1 g PO QID 3 months #360 tabs 07/27/24 PHYSICAL EXAM AT DISCHARGE Vital Signs: Vital Signs x48h Temp Pulse Pulse Resp BP BP Pulse Ox 07/27/24 14:44 97.9 F 64 16 128/62 100 07/27/24 13:34 97.7 F 62 16 115/71 99 07/27/24 12:01 97.7 F 63 18 102/66 100 07/27/24 11:25 97.9 F 64 20 103/68 100 07/27/24 11:17 97.2 F L 61 15 105/59 L 100 07/27/24 11:10 97.2 F L 65 16 93/53 L 98 07/27/24 10:55 97.5 F L 64 18 85/48 L 100 07/27/24 08:13 97.5 F L 63 18 104/64 100 O2 Flow Rate 07/27/24 14:44 07/27/24 13:34 07/27/24 12:01 07/27/24 11:25 2 07/27/24 11:17 07/27/24 11:10 07/27/24 10:55 07/27/24 08:13 General Appearance: positive No acute distress and Alert; negative Anxious Eyes Bilateral: positive Normal inspection, PERRL and EOMI ENT: positive ENT inspection nml, Pharynx nml and No signs of dehydration Neck: positive Nml inspection, Thyroid nml and No JVD Respiratory: positive Chest non-tender, No respiratory distress and Breath sounds nml; negative Wheezes, Rales or Rhonchi Cardiovascular: positive Regular rate & rhythm, No murmur and No gallop Peripheral Pulses: positive 2+ Abdomen: positive Non-tender, No organomegaly, Nml bowel sounds and No distention; negative Rebound, Hepatomegaly or Mass Back: positive Nml inspection; negative CVA tenderness (R) or CVA tenderness (L) Skin: positive Color nml, No rash, Warm and Dry Extremities: positive Non-tender, Full ROM, Nml appearance and No pedal edema Neurologic/Psychiatric: positive Oriented x3, Motor nml and Sensation nml LABS 07/27/24 12:12 07/27/24 05:35 DIAGNOSTIC IMAGING Diagnostic Imaging Results: Final report reviewed FOLLOW UP Follow Up: Follow up with primary care provider. Follow up with general surgery. TIME SPENT Time Spent in Discharge (Minutes): 35 Discharge Plan Discharge Patient Disposition: Home, Self Care Condition: Stable Prescriptions: New pantoprazole 40 mg Tablet,Delayed Release (Dr/Ec) 40 mg PO BIDAC Qty: 60 0RF sucralfate 1 gram tablet 1 g PO QID 90 Days Qty: 360 0RF Diet: Soft Health Concerns: You came in because you passed out and hit your head. At home, you have been having dark stools with blood in them. Here in the emergency room, you had an episode where you threw up blood. We completed an EGD, where we looked with a camera from above and this showed inflammation of your stomach. Some biopsies were taken, which the surgeon will follow-up with you about. This is likely attributed to your recent Aleve use after your procedure. We also did a colonoscopy, where we looked with a camera from below, and this was normal. You will need to be on Protonix 40 mg twice a day, for a long time, possibly indefinitely. You will also need to continue sucralfate suspension 4 times a day for 3 months to help with healing. Here, you have been getting it at: 0700, 1100, 1600 and 2200. I have sent these medications to [facility]. I did speak with your bariatric surgeon, and he is updated about your clinical situation. Please continue to follow-up with him in the outpatient setting. We hope you enjoy the rest of your stay here, thank you for letting us take care of you. Print Language: Armenian Patient Instructions: Surgery Anesthesia After, Bleeding Gastrointestinal Stand Alone Forms: PCP List"
[2024-07-27 14:45] VITALS: BP 128/62; TEMP 97.9; O2SAT 100
[2024-07-27] MEDS ORDERED: PANTOPRAZOLE 40 MG TABLET PO SCH (16:00)
== END 2024-07-27 15:35 | disposition home or self-care (01) ==
LOC: ED 02:34 → MS2 02:34
PROVIDERS: ADMIT Student in an Organized Health Care Education/Training Program; ATTEND Student in an Organized Health Care Education/Training Program
DX: K57.30 Diverticulosis of large intestine without perforation or abscess without bleeding; K44.9 Diaphragmatic hernia without obstruction or gangrene; S09.90XA Unspecified injury of head, initial encounter; Z98.84 Bariatric surgery status; K29.70 Gastritis, unspecified, without bleeding; W18.30XA Fall on same level, unspecified, initial encounter; T39.315A Adverse effect of propionic acid derivatives, initial encounter; K20.91 Esophagitis, unspecified with bleeding